=== PATIENT | female | born 1990 | race Caucasian/White ===

== ENCOUNTER 2021-07-12 08:43 | Day surgery (SDC) | payer BC, SELFPAY ==
[~2021-07-12] VITALS: Ht 154.9 cm; Wt 146.1 kg
[~2021-07-12 08:43] MED LIST: CEFAZOLIN SOD 1 GM in D5W 50 ML IV ONE
[2021-07-12 09:16] LABS: HCG,QUAL RESULT NEGATIVE (NEGATIVE)
[2021-07-12] MEDS ORDERED: DESFLURANE 15 MIN GAS INH ONE (12:16)
[2021-07-12] MEDS ORDERED: ONDANSETRON HCL 4 MG/2 ML VIAL IVP ONE (12:16)
[2021-07-12] MEDS ORDERED: SUGAMMADEX SODIUM 200 MG/2 ML VIAL IV ONE (12:16)
[2021-07-12] MEDS ORDERED: DEXAMETHASONE SOD PHOSPHATE 10 MG/ML VIAL IVP ONE (12:16)
[2021-07-12] MEDS ORDERED: MIDAZOLAM HCL 5 MG/5 ML VIAL IVP ONE (12:16)
[2021-07-12] MEDS ORDERED: ROCURONIUM BROMIDE 10 MG/ML (ZEMURON) IV ONE (12:16)
[2021-07-12] MEDS ORDERED: PROPOFOL 200MG/ 20ML VIAL (DIPRIVAN) IV ONE (12:16)
[2021-07-12] MEDS ORDERED: fentaNYL CITRATE/PF 100 MCG/2 ML AMP IVP ONE (12:16)
[2021-07-12] MEDS ORDERED: LR 1,000 ML IV.SOLN IV ONE (12:16)
[2021-07-12] MEDS ORDERED: NS IRRIG SOLN 1000 ML IR ONE (12:16)
[2021-07-12] MEDS ORDERED: BUPIVACAINE /EPINEPHRINE/PF 0.25% 30 ML VIAL INJ ONE (12:16)
[2021-07-12] MEDS ORDERED: LABETALOL 100 MG/ 20ML VIAL IVP PRN (12:45)
[2021-07-12] MEDS ORDERED: MIDAZOLAM HCL 2 MG/2 ML VIAL (VERSED) IVP PRN (12:45)
[2021-07-12] MEDS ORDERED: hydrALAZINE HCL 20 MG/ML VIAL IVP PRN (12:45)
[2021-07-12] MEDS ORDERED: ONDANSETRON HCL 4 MG/2 ML VIAL IVP PRN (12:45)
[2021-07-12] MEDS ORDERED: LR 1,000 ML IV SCH (12:45)
[2021-07-12] MEDS ORDERED: METOCLOPRAMIDE HCL 10 MG/2 ML VIAL IVP PRN (12:45)
[2021-07-12] MEDS ORDERED: MEPERIDINE HCL/PF 25 MG/ML DISP.SYRIN IVP PRN (12:45)
[2021-07-12] MEDS ORDERED: HYDROmorphone 1 MG/ML INJ. CARTRIDGE IVP PRN ×3 (12:45→13:30)
[2021-07-12] MEDS ORDERED: D5/0.45 NS 1,000 ML IV SCH (13:30)
[2021-07-12] MEDS ORDERED: HYDROcodone/ACETAMIN 5-325 MG TAB (NORCO/ VICODIN) PO PRN ×2 (13:30)
[2021-07-12] MEDS ORDERED: HYDROcodone/ACETAMIN 5-325 MG TAB (NORCO/ VICODIN) ONE (15:06)
[2021-07-12 16:16] VITALS: BP_SYST 125
== END 2021-07-12 15:50 | disposition home or self-care (01) ==
LOC: SDS 08:43 → SMU 08:44 → SDS 15:50
PROVIDERS: ATTEND Colon & Rectal Surgery
DX: K62.89 Other specified diseases of anus and rectum (principal); K21.9 Gastro-esophageal reflux disease without esophagitis; E66.01 Morbid (severe) obesity due to excess calories; M17.12 Unilateral primary osteoarthritis, left knee; M25.762 Osteophyte, left knee; M75.40 Impingement syndrome of unspecified shoulder; Z79.899 Other long term (current) drug therapy; Z20.822 Contact with and (suspected) exposure to COVID-19
CPT/HCPCS: 45172; 84703; 88305; C9399; J0690; J1100; J2250; J2405; J2704; J3010; J3490; J7060; J7120; U0003